=== PATIENT | female | born 1950 | race Caucasian/White ===

== ENCOUNTER → 2019-06-01 | Outpatient (CLI) | payer SELFPAY | END | disposition home or self-care (01) | LOC: LAB SHORT 17:32 → LAB 17:32 | PROVIDERS: Hospitalist | DX: Z12.4 Encounter for screening for malignant neoplasm of cervix (principal) | CPT/HCPCS: G0145 ==

== ENCOUNTER → 2020-09-04 | Outpatient (CLI) | payer OTHER ==
[2020-09-04 20:04] LABS: Free Thyroxine 0.9 ng/dL (0.70-1.60)
[2020-09-04 20:08] LABS: Thyroid Stimulating Hormone 3.73 uIU/mL (0.360-4.800)
== END | disposition home or self-care (01) ==
LOC: LAB 15:30 → LAB SHORT 15:30
PROVIDERS: Hospitalist
DX: E03.9 Hypothyroidism, unspecified (principal)
CPT/HCPCS: 84439; 84443

== ENCOUNTER → 2022-04-08 | Outpatient (CLI) | payer OTHER ==
[2022-04-08 17:15] LABS: Alanine Aminotransfer (ALT/SGP 29 U/L (12-78); Albumin, Blood 4.1 g/dL (3.4-5.0); Albumin/Globulin Ratio 1.2 (0.8-1.8); Alk Phos 96 U/L (50-136); Anion Gap 4 mmol/L (6-16); Aspartate Aminotrans (AST/SGOT 24 U/L (12-37); Bilirubin, Total 0.3 mg/dL (0.1-1.0); Blood Urea Nitrogen 12 mg/dL (8-24); Bun/Creatinine Ratio 13.7 (12.0-20.0); CHOL/HDL RATIO 2.4; CO2, Blood 27 mmol/L (21-32); Calcium, Blood 9.4 mg/dL (8.5-10.1); Chloride, Blood 108 mmol/L (98-108); Cholesterol 163 mg/dL (50-200); Creatinine, Blood 0.88 mg/dL (0.40-1.00); Free Thyroxine 1.12 ng/dL (0.70-1.60); Globulin, Blood 3.5 g/dL (2.2-4.0); Glomerular Filtration Rate 71 (60-); Glucose, Blood 105 mg/dL (70-99); HDL Cholesterol 68 mg/dL (>39); LDL/HDL RATIO 1.2; Low Density Lipoprotein Chol 79 mg/dL (0-110); Potassium, Blood 4.3 mmol/L (3.5-5.5); Sodium, Blood 139 mmol/L (136-145); Total Protein, Blood 7.6 g/dL (6.4-8.2); Triglycerides 81 mg/dL (30-160); Triiodothyronine, Free 2.19 pg/mL (2.18-3.98); Very Low Density Lipoprot Chol 16 mg/dL (6-32)
== END | disposition home or self-care (01) ==
LOC: LAB 14:17 → LAB SHORT 14:17
PROVIDERS: Hospitalist
DX: Z00.00 Encounter for general adult medical examination without abnormal findings (principal); Z13.220 Encounter for screening for lipoid disorders; E03.9 Hypothyroidism, unspecified
CPT/HCPCS: 80053; 80061; 84439; 84443; 84481

== ENCOUNTER → 2022-08-21 | Outpatient (CLI) | payer OTHER | END | disposition home or self-care (01) | LOC: LAB SHORT 15:35 → LAB 15:35 | DX: E03.9 Hypothyroidism, unspecified (principal) | CPT/HCPCS: 84443 ==

== ENCOUNTER → 2023-07-09 | Outpatient (CLI) | payer OTHER ==
[2023-07-09 18:43] LABS: Free Thyroxine 1.04 ng/dL (0.70-1.60)
[2023-07-09 18:45] LABS: Thyroid Stimulating Hormone 3.34 uIU/mL (0.360-4.800)
== END | disposition home or self-care (01) ==
LOC: LAB 17:42 → LAB SHORT 17:42
PROVIDERS: Hospitalist
DX: E03.9 Hypothyroidism, unspecified (principal)
CPT/HCPCS: 84439; 84443

== ENCOUNTER 2024-12-11 14:10 | Emergency (ER) | payer OTHER ==
[~2024-12-11] VITALS: Ht 162.6 cm; Wt 72.6 kg
[2024-12-11 16:30] VITALS: BP 157/81
== END 2024-12-11 17:53 | disposition home or self-care (01) ==
LOC: ER 14:10
DX: S06.0X9A Concussion with loss of consciousness of unspecified duration, initial encounter (principal); S01.01XA Laceration without foreign body of scalp, initial encounter; W18.30XA Fall on same level, unspecified, initial encounter
CPT/HCPCS: 70450; 73562-RT; 90471; 90715; 99284-25; A9270